=== PATIENT | female | born 1955 | race Caucasian/White ===

== ENCOUNTER 2023-01-29 06:58 | Day surgery (SDC) | payer MEDICARE, OTHER ==
[2023-01-29] VITALS (10 sets, daily range): BP systolic 117–143; BP diastolic 55–80
[~2023-01-29] VITALS: Ht 160 cm; Wt 95.3 kg
[~2023-01-29 06:58] MED LIST: BACL10TA PO; CELE200C PO; CITA20TA3 PO; GABA-1250 PO; IBUP-1456 PO; LEVO175T4 PO
[2023-01-29] MEDS ORDERED: HEPARIN SODIUM (PORCINE) 5000 UNITS/ML 1ML VIAL ONE (08:36)
[2023-01-29] MEDS ORDERED: VERAPAMIL 2.5MG/ML INJ 2ML VIAL IV ONE (08:36)
[2023-01-29] MEDS ORDERED: fentaNYL CITRATE 100 MCG/2 ML VL ONE (08:36)
[2023-01-29] MEDS ORDERED: ANGIOMAX 250 MG VIAL IV ONE (08:36)
[2023-01-29] MEDS ORDERED: LIDOCAINE 2%HCL (LOCAL ANESTH.) INJ 20ML MDV ONE ×2 (08:37→09:10)
[2023-01-29] MEDS ORDERED: MIDAZOLAM HCL 2MG/2ML 2ml VIAL (1mg/ml) ONE (08:37)
[2023-01-29] MEDS ORDERED: SODIUM CHL 0.9% 0 ML ONE (08:37)
== END 2023-01-29 12:02 | disposition home or self-care (01) ==
LOC: CATH 06:58
PROVIDERS: ATTEND Internal Medicine Cardiovascular Disease
DX: R94.39 Abnormal result of other cardiovascular function study (principal); E03.9 Hypothyroidism, unspecified; E78.5 Hyperlipidemia, unspecified; L40.50 Arthropathic psoriasis, unspecified; E66.9 Obesity, unspecified; Z68.37 Body mass index [BMI] 37.0-37.9, adult; Z98.84 Bariatric surgery status; Z85.3 Personal history of malignant neoplasm of breast; Z79.1 Long term (current) use of non-steroidal anti-inflammatories (NSAID); Z88.6 Allergy status to analgesic agent; Z79.890 Hormone replacement therapy; Z98.890 Other specified postprocedural states
CPT/HCPCS: 76937; 93458; C1725; C1769; C1894; J1644; J2250; J3010; J7030; 99152; 99153